=== PATIENT | female | born 1990 ===

== ENCOUNTER 2022-05-14 00:51 | Emergency (ER) | payer SELFPAY ==
[2022-05-14] MEDS ORDERED: Sodium Chloride 0.9% 2.5 ML Syringe FLUSH PRN (01:06)
[2022-05-14] MEDS ORDERED: Sodium Chloride 0.9% 1,000 ML IV ONE (01:06)
[2022-05-14] MEDS ORDERED: Sodium Chloride 0.9% 10 ML Syringe FLUSH PRN (01:06)
[2022-05-14 02:26] LABS: CARBON DIOXIDE,CO2 23.8 mmol/L (21.0-32.0); POTASSIUM,K 3.1 mmol/L (3.5-5.1)
== END 2022-05-14 05:36 | disposition home or self-care (01) ==
LOC: MW.ED 00:51
DX: O20.0 Threatened abortion (principal); Z3A.12 12 weeks gestation of pregnancy
CPT/HCPCS: 36415; 76801; 80053; 84702; 85025; 86850; 86900; 86901; 90384; 96360; 99284; J3490; J7030; 36430; J2790

== ENCOUNTER 2022-09-20 17:50 | Emergency (ER) | payer SELFPAY ==
[2022-09-20] MEDS ORDERED: Dextrose 5%-Lactated Ringers 1,000 ML IV STA (19:22)
[2022-09-20 19:25] LABS: CORONAVIRUS COVID-19 NAA NEGATIVE (NEGATIVE); INFLUENZA A NAA POSITIVE (NEGATIVE); INFLUENZA B NAA NEGATIVE (NEGATIVE); RESPIRATORY SYNCYTIAL VIR NAA NEGATIVE (NEGATIVE)
[2022-09-20] MEDS ORDERED: Acetaminophen 500 MG Tab PO ONE (19:44)
[2022-09-20] MEDS: Ondansetron 4 MG/2 ML SDV IVPUSH ONE ×2 (20:23→20:28)
[2022-09-20 21:01] LABS: CARBON DIOXIDE,CO2 23.2 mmol/L (21.0-32.0); POTASSIUM,K 3.4 mmol/L (3.5-5.1)
[2022-09-20] MEDS ORDERED: Lactated Ringers 1,000 ML IV STA (22:09)
== END 2022-09-20 23:55 | disposition home or self-care (01) ==
LOC: MW.ED 17:50
DX: O99.513 Diseases of the respiratory system complicating pregnancy, third trimester (principal); J10.1 Influenza due to other identified influenza virus with other respiratory manifestations; O99.891 Other specified diseases and conditions complicating pregnancy; R00.0 Tachycardia, unspecified; Z20.822 Contact with and (suspected) exposure to COVID-19
CPT/HCPCS: 0241U; 36415; 80053; 81003; 85025; 96360; 96361; 99283; A9270; J7120; J7121; J2405

== ENCOUNTER 2022-11-30 05:13 | Inpatient (IN) | payer MEDICAID ==
[2022-11-30] MEDS ORDERED: Sodium Chloride 0.9% 10 ML Syringe FLUSH PRN (05:55)
[2022-11-30] MEDS ORDERED: Tranexamic Acid 1,000 MG in Sodium Chloride 0.9% 100 ML IV PRN (05:55)
[2022-11-30] MEDS ORDERED: Sodium Chloride 0.9% 2.5 ML Syringe FLUSH PRN (05:55)
[2022-11-30] MEDS ORDERED: Lidocaine 1% 50 ML MDV INJECT PRN (05:55)
[2022-11-30] MEDS ORDERED: Sodium Chloride 0.9% 20 ML SDV IV PRN (05:55)
[2022-11-30] MEDS ORDERED: Butorphanol 1 MG/ML SDV IVPUSH PRN (05:55)
[2022-11-30] MEDS ORDERED: Misoprostol 200 MCG Tab PO PRN (05:55)
[2022-11-30] MEDS ORDERED: Carboprost Tromethamine 250 MCG/1 ML Amp IM PRN (05:55)
[2022-11-30] MEDS ORDERED: Methylergonovine 0.2 MG/1 ML Amp IM PRN (05:55)
[2022-11-30] MEDS ORDERED: Ondansetron 4 MG/2 ML SDV IVPUSH PRN (05:55)
[2022-11-30] MEDS ORDERED: Water For Irrigation,Sterile 1,000 ML Container IRR PRN (05:55)
[2022-11-30] MEDS ORDERED: Lactated Ringers 1,000 ML IV SCH (06:00)
[2022-11-30] MEDS ORDERED: Oxytocin/0.9 % Sodium Chloride 30 UNIT/500 ML BAG IV SCH (06:00)
[2022-11-30] MEDS ORDERED: Lanolin 100% Cream 7 GM Tube TOP PRN ×2 (10:09→11:13)
[2022-11-30] MEDS ORDERED: Ibuprofen 800 MG Tab PO PRN ×2 (10:09→11:13)
[2022-11-30] MEDS ORDERED: Docusate Sodium 100 MG Cap PO PRN ×2 (10:09→11:13)
[2022-11-30] MEDS ORDERED: oxyCODONE 5 MG Tab PO PRN (10:09)
[2022-11-30] MEDS ORDERED: Ibuprofen 400 MG Tab PO PRN ×2 (10:09→11:13)
[2022-11-30] MEDS ORDERED: Acetaminophen 500 MG Tab PO PRN ×4 (10:09→11:13)
[2022-11-30] MEDS ORDERED: Benzocaine/Menthol 20%-0.5% Spray 78 GM Cannister TOP PRN ×2 (10:09→11:13)
[2022-11-30] MEDS ORDERED: Bisacodyl 10 MG Supp RECTAL PRN ×2 (10:09→11:13)
[2022-11-30] MEDS ORDERED: Witch Hazel Medicated Pads 40/Jar TOP PRN ×2 (10:09→11:13)
[2022-12-01] MEDS ORDERED: Prenatal Multivitamin with Calcium/Folic Acid/Iron Tab PO SCH (09:00)
== END 2022-12-01 14:16 | disposition home or self-care (01) | DRG 807 ==
LOC: MW.OBCHECK 05:13 → MW.OB 05:55 → OBSVTOIN 09:15 → MW.OB 13:55
PROVIDERS: ADMIT Obstetrics & Gynecology Obstetrics; ATTEND Obstetrics & Gynecology Obstetrics
PROC: 10E0XZZ Delivery of Products of Conception, External Approach (ICD-10-PCS; principal; 2022-11-30)
PROC: 3E0234Z Introduction of Serum, Toxoid and Vaccine into Muscle, Percutaneous Approach (ICD-10-PCS; 2022-11-30)
DX: O48.0 Post-term pregnancy (principal); Z37.0 Single live birth; Z3A.40 40 weeks gestation of pregnancy; O69.81X0 Labor and delivery complicated by cord around neck, without compression, not applicable or unspecified; Z20.822 Contact with and (suspected) exposure to COVID-19; O26.893 Other specified pregnancy related conditions, third trimester; Z67.41 Type O blood, Rh negative
CPT/HCPCS: 36415; 59025; 59409; 80305-QW; 85014; 85018; 85027; 85460; 86592; 86850; 86900; 86901; A9270-GY; J2590; J2790; U0002